=== PATIENT | female | born 1995 | race African-American/Black ===

== ENCOUNTER 2021-05-09 16:35 | Emergency (ER) | payer MEDICAID ==
[~2021-05-09] VITALS: Ht 165.1 cm; Wt 136.1 kg
[2021-05-09 17:37] VITALS: BP 123/78
[2021-05-09] MEDS ORDERED: NACL 0.9% 1,000 ML IV ONE (18:00)
[2021-05-09] MEDS ORDERED: ONDANSETRON 4 MG/2 ML VIAL IVP ONE (18:00)
[2021-05-09] MEDS ORDERED: KETOROLAC 30 MG/ML VIAL IVP ONE (18:00)
[2021-05-09] MEDS ORDERED: ONDANSETRON 4 MG/2 ML VIAL ONE (19:16)
[2021-05-09] MEDS ORDERED: KETOROLAC 30 MG/ML VIAL ONE (19:17)
--- NOTE | 2021-05-09 20:11 | NUR ---
covid swab collected and walked to lab.
[2021-05-09] MEDS ORDERED: ONDA8TAB87 PO (20:18)
[2021-05-09] MEDS ORDERED: LOPE-289 PO (20:18)
[2021-05-09] MEDS ORDERED: IBUP-2213 PO (20:18)
[2021-05-09] MEDS ORDERED: CIPR500T4 PO (20:18)
--- NOTE | 2021-05-09 22:25 | NUR ---
pt d/c with [facility]SS. d/c education given. opportunity to ask questions given and answered. rx of cipro, motrin, imodium, and zofran given. IV site removed, bleeding controlled with sterile gauze and reinforced with tape.
[2021-05-09 22:30] VITALS: BP 141/87
== END 2021-05-09 22:25 | disposition home or self-care (01) ==
LOC: MED 16:35
DX: U07.1 COVID-19 (principal)
CPT/HCPCS: 81002; 81025; 96361; 96374; 96375; 99284; J1885; J2405; J7030; U0003

== ENCOUNTER 2023-07-20 23:25 | Emergency (ER) | payer MEDICAID ==
[~2023-07-20] VITALS: Ht 162.6 cm; Wt 145.1 kg
[~2023-07-20 23:25] MED LIST: CIPR500T4 PO; IBUP-2213 PO; LOPE-289 PO; ONDA8TAB87 PO
[2023-07-21] VITALS: BP 107/61; PULSE 92; RESP 17; TEMP 97.8; O2SAT 96
[2023-07-21] MEDS ORDERED: CYCL-711 PO (04:14)
[2023-07-21] MEDS ORDERED: NAPR-54 PO (04:14)
[2023-07-21] MEDS: KETOROLAC 30 MG/ML VIAL IM ONE (04:44)
== END 2023-07-21 04:42 | disposition home or self-care (01) ==
LOC: MED 23:25
DX: S39.012A Strain of muscle, fascia and tendon of lower back, initial encounter (principal); Z79.899 Other long term (current) drug therapy; V89.2XXA Person injured in unspecified motor-vehicle accident, traffic, initial encounter; Y93.89 Activity, other specified; Y92.410 Unspecified street and highway as the place of occurrence of the external cause; Y99.8 Other external cause status
CPT/HCPCS: 72100; 81025; 99283; J1885